=== PATIENT | male | born 1980 | race Hispanic/Latino ===

== ENCOUNTER 2021-07-18 10:35 | Day surgery (SDC) | payer OTHER ==
[~2021-07-18] VITALS: Ht 177.8 cm; Wt 96.2 kg
[~2021-07-18 10:35] MED LIST: HYDR-3363 PO; NS 1,000 ML IV ONE; OMEP40CA4 PO; TIZA2CAP PO
[2021-07-18] MEDS ORDERED: LIDOCAINE 2% 100MG/5ML SDV (FOR ANES.) As Ordered ONE (11:45)
[2021-07-18] MEDS ORDERED: fentaNYL 100 MCG/2 ML INJECTION As Ordered ONE (11:46)
[2021-07-18] MEDS ORDERED: propofoL 500 MG/50 ML VIAL As Ordered ONE (11:46)
[2021-07-18 13:15] VITALS: BP 118/77
== END 2021-07-18 13:27 | disposition home or self-care (01) ==
LOC: M OPP 10:35
PROVIDERS: ATTEND Internal Medicine Gastroenterology
DX: K63.89 Other specified diseases of intestine (principal); K64.8 Other hemorrhoids; R92.1 Mammographic calcification found on diagnostic imaging of breast; K22.89 Other specified disease of esophagus; K29.70 Gastritis, unspecified, without bleeding; R13.10 Dysphagia, unspecified; R12 Heartburn; R07.9 Chest pain, unspecified; Z79.899 Other long term (current) drug therapy; Z88.0 Allergy status to penicillin
CPT/HCPCS: 43239; 45380; 88305; J3010

== ENCOUNTER → 2022-02-12 | Outpatient (CLI) | payer OTHER ==
[~2022-02-12] MED LIST changes: -NS 1,000 ML IV ONE
[2022-02-12 12:39] LABS: PLATELET COUNT, AUTOMATED 232 10^3/uL (150-450)
[2022-02-12 13:02] LABS: INR 0.9; PROTHROMBIN TIME 12.5 SECONDS (12.7-14.5)
[2022-02-12 13:03] LABS: PARTIAL THROMBOPLASTIN TIME 29.1 SECONDS (25.9-37.0)
== END ==
LOC: M LAB 11:54
PROVIDERS: ATTEND Physician Assistant
DX: M54.59 Other low back pain (principal)